=== PATIENT | male | born 1960 | race Asian ===

== ENCOUNTER 2020-03-28 05:52 | Day surgery (SDC) | payer OTHER, SELFPAY ==
[~2020-03-28] VITALS: Ht 165.1 cm; Wt 64.4 kg
[2020-03-28] MEDS ORDERED: fentaNYL citrate 0.05 MG/ML VIAL ONE (07:21)
[2020-03-28] MEDS ORDERED: diphenhydrAMINE 50 MG/ML VIAL ONE (07:22)
[2020-03-28] MEDS ORDERED: MIDAZOLAM 5 MG/5 ML VIAL ONE (07:22)
[2020-03-28] MEDS ORDERED: fentaNYL citrate 0.05 MG/ML VIAL IVP ONE (08:25)
[2020-03-28] MEDS ORDERED: MIDAZOLAM 2 MG/2 ML VIAL IVP ONE (08:25)
== END 2020-03-28 08:30 | disposition home or self-care (01) ==
LOC: MDS 05:52 → MFCC 06:09 → MDS 08:30
PROVIDERS: ATTEND Internal Medicine Gastroenterology
DX: Z12.11 Encounter for screening for malignant neoplasm of colon (principal); R10.13 Epigastric pain; K63.5 Polyp of colon; K31.9 Disease of stomach and duodenum, unspecified; Z79.899 Other long term (current) drug therapy
CPT/HCPCS: 43235; 45385; 87426; 88305; J2250; J3010; J1200